=== PATIENT | male | born 1965 | race African-American/Black ===

== ENCOUNTER 2018-01-30 07:59 | Day surgery (SDC) | payer OTHER ==
[2018-01-26 11:15] VITALS: BMI 29.2
[2018-01-30] MEDS ORDERED: PROPOFOL 20 ML ONE ×2 (08:02)
[2018-01-30 08:20] VITALS: TEMP 97.6
[2018-01-30] MEDS ORDERED: LIDOCAINE HCL/PF 2% SDV 5ML VIAL ONE (08:26)
[2018-01-30 09:52] VITALS: BP 105/66; PULSE 77
== END 2018-01-30 10:00 | disposition home or self-care (01) ==
LOC: FASU-ENDO 07:59
PROVIDERS: ATTEND Internal Medicine Gastroenterology
PROC: 0DJD8ZZ Inspection of Lower Intestinal Tract, Via Natural or Artificial Opening Endoscopic (ICD-10-PCS; principal; 2018-01-30 08:58)
DX: Z12.11 Encounter for screening for malignant neoplasm of colon (principal); Z80.0 Family history of malignant neoplasm of digestive organs
CPT/HCPCS: 82962